=== PATIENT | female | born 1990 | race Two or more races ===

== ENCOUNTER 2016-12-05 08:41 | Emergency (ER) | payer BC, OTHER ==
[2016-12-05 08:56] VITALS: BMI 40.3
--- NOTE | 2016-12-05 09:27 | PDOC ---
History of Present Illness - General History Source: Patient Exam Limitations: No Limitations - History of Present Illness Initial Comments: 12/05/16 09:29 The patient is a 26-year-old woman, accompanied by friend, with a past medical history of anxiety who presents to the emergency department via walk-in for further evaluation of abdominal pain. Patient states that her pain started suddenly this morning while she was driving her friend to work. She states that initially, her pain was a stabbing sensation but has now turned into burning sensation. She attempted to move in order to alleviate her pain, but she states that movements have exacerbated it. She also reports one episode of vomiting. No flank pain, dysuria, diarrhea. No fever, chills. Allergies: No Known Allergies Past Surgical History: None reported. Social History: She denies tobacco, ETOH and recreational drug use. <Qian Beltran - Last Filed: 12/05/16 14:50> <Zaynab Farley - Last Filed: 12/05/16 21:49> - General Chief Complaint: Pain Stated Complaint: LT SIDE PAIN Time Seen by Provider: 12/05/16 09:17 Past History <Qian Beltran - Last Filed: 12/05/16 14:50> - Past Medical History Other medical history: NONE - Immunization History Immunization Up to Date: Yes - Psycho/Social/Smoking Cessation Hx Anxiety: Yes Suicidal Ideation: No Smoking History: Never smoked Hx Alcohol Use: No Drug/Substance Use Hx: No Substance Use Type: None <Zaynab Farley - Last Filed: 12/05/16 21:49> - Past Medical History Allergies/Adverse Reactions: Allergies Allergy/AdvReac Type Severity Reaction Status Date / Time No Known Allergies Allergy Verified 12/05/16 08:56 Home Medications: Ambulatory Orders Ibuprofen [Motrin -] 600 mg PO TID #21 tablet 12/05/16 Oxycodone HCl/Acetaminophen [Percocet 5-325 mg Tablet] 1 tab PO Q6H PRN #12 tablet MDD 4 tabs 12/05/16 Review of Systems - Review of Systems Able to Perform ROS?: Yes Comments:: 12/05/16 09:29 GENERAL/CONSTITUTIONAL: No fever or chills. No weakness. HEAD, EYES, EARS, NOSE AND THROAT: No change in vision. No ear pain or discharge. No sore throat. CARDIOVASCULAR: No chest pain or shortness of breath. RESPIRATORY: No cough, wheezing, or hemoptysis. GASTROINTESTINAL: Yes: Abdominal Pain. Nausea. Vomiting. No diarrhea or constipation. GENITOURINARY: No dysuria, frequency, or change in urination. MUSCULOSKELETAL: No joint or muscle swelling or pain. No neck or back pain. SKIN: No rash NEUROLOGIC: No headache, vertigo, loss of consciousness, or change in strength/ sensation. ENDOCRINE: No increased thirst. No abnormal weight change. HEMATOLOGIC/LYMPHATIC: No anemia, easy bleeding, or history of blood clots. ALLERGIC/IMMUNOLOGIC: No hives or skin allergy. <Qian Beltran - Last Filed: 12/05/16 14:50> *Physical Exam - Vital Signs Last Vital Signs Temp Pulse Resp BP Pulse Ox 97.8 F 82 20 141/78 99 12/05/16 08:53 12/05/16 08:53 12/05/16 08:53 12/05/16 08:53 12/05/16 08:53 - Physical Exam Comments: 12/05/16 09:29 GENERAL: Awake, alert, and fully oriented, in no acute distress HEAD: No signs of trauma EYES: PERRLA, EOMI, sclera anicteric, conjunctiva clear ENT: Auricles normal inspection, hearing grossly normal, nares patent, oropharynx clear without exudates. Moist mucosa NECK: Normal ROM, supple, no lymphadenopathy, JVD, or masses LUNGS: Breath sounds equal, clear to auscultation bilaterally. No wheezes, and no crackles HEART: Regular rate and rhythm, normal S1 and S2, no murmurs, rubs or gallops ABDOMEN: Soft, there is moderate tenderness to palpation with guarding to the left upper and lower quadrants. Normoactive bowel sounds. No rebound. No masses EXTREMITIES: Normal range of motion, no edema. No clubbing or cyanosis. No cords, erythema, or tenderness NEUROLOGICAL: Cranial nerves II through XII grossly intact. Normal speech <Qian Beltran - Last Filed: 12/05/16 14:50> - Vital Signs Last Vital Signs Temp Pulse Resp BP Pulse Ox 97.8 F 82 20 141/78 99 12/05/16 08:53 12/05/16 08:53 12/05/16 08:53 12/05/16 08:53 12/05/16 08:53 <Zaynab Farley - Last Filed: 12/05/16 21:49> ED Treatment Course - LABORATORY CBC & Chemistry Diagram: 12/05/16 09:53 12/05/16 09:53 - RADIOLOGY Radiograph Interpretation: 12/05/16 14:48 EXAM: CT/ABDOMEN PELVIS CT WITH CONTR CT IMPRESSION: Axial imaging completed with coronal and sagittal reformations after bolus injection 95 cc Omnipaque 350 with a power injector Normal images through the lung bases with no infiltrate, nodule or effusion with no pneumatosis and no signs of bowel obstruction with no hernia. Normal midline urinary bladder identified Retained fecal material throughout the colon identified with normal visualization of region of terminal ileum with normal region of appendix and no CT evidence of appendicitis or colitis with no CT evidence of diverticulitis Symmetric enhancement of both kidneys with no hydronephrosis or stones and no pyelonephritis. Normal visualization of liver, gallbladder and bile ducts including stomach, splenic flexure and spleen with normal visualization of the pancreas No aortic aneurysm or para-aortic adenopathy with tiny mesenteric lymph nodes subcentimeter short axis configuration root of mesentery which can be seen with mesenteric adenitis. No enlarged para- aortic or retroperitoneal lymph nodes are seen and there is no bowel wall thickening with no paracolic infiltration. There are no suspicious findings in the pelvis, the uterus enhances normally. The presence of a large cyst is observed in the region of the left ovary up to 2 cm. Recent rupture suspected No abnormalities in the region of right adnexa with normal visualization of the ovary with no fibroids and no significant free fluid in the floor the pelvis with normal rectum <Qian Beltran - Last Filed: 12/05/16 14:50> - LABORATORY CBC & Chemistry Diagram: 12/05/16 09:53 12/05/16 09:53 <Zaynab Farley - Last Filed: 12/05/16 21:49> Medical Decision Making - Medical Decision Making 12/05/16 10:59 Pt reassessed. She states the pain is coming back. Will give additional dose of morphine and cont to monitor. 12/05/16 13:44 Pt reassessed. Pain has returned. Abd exam remains stable. Will give dilaudid. Awaiting sono results. 12/05/16 14:56 Sono results discussed with patient. She states that the pain has improved. I will give a dose of toradol at this point, as it may be more effective for the pain from the ovarian cyst. 12/05/16 16:34 Patient states pain has resolved. Feeling much better. Stable for DC home. [employer] f /u as outpatient. <Zaynab Farley - Last Filed: 12/05/16 21:49> *DC/Admit/Observation/Transfer - Attestations Scribe Attestion: 12/05/16 09:30 Documentation prepared by Qian Beltran, acting as medical file clerk for Zaynab Farley MD. <Qian Beltran - Last Filed: 12/05/16 14:50> - Discharge Dispostion Admit: No <Zaynab Farley - Last Filed: 12/05/16 21:49> Diagnosis at time of Disposition: Ovarian cyst Qualifiers: Laterality: right Qualified Code(s): N83.201 - Unspecified ovarian cyst, right side - Discharge Dispostion Disposition: HOME Condition at time of disposition: Improved - Prescriptions Prescriptions: Ibuprofen [Motrin -] 600 mg PO TID #21 tablet Oxycodone HCl/Acetaminophen [Percocet 5-325 mg Tablet] 1 tab PO Q6H PRN #12 tablet MDD 4 tabs PRN Reason: Severe Pain - Patient Instructions Printed Discharge Instructions: DI for Ovarian Cyst - Post Discharge Activity Work/School Note: Back to Work
[2016-12-05] MEDS ORDERED: SODIUM CHLORIDE 1,000 ML IV STA (09:28)
[2016-12-05] MEDS ORDERED: ONDANSETRON 4 MG/2 ML VIAL IVPUSH ONE (09:28)
[2016-12-05] MEDS ORDERED: morphine CARPU-JECT 4 MG/1 ML DISP.SYRIN IVPUSH ONE ×2 (09:28→10:58)
[2016-12-05] MEDS ORDERED: morphine CARPU-JECT 4 MG/1 ML DISP.SYRIN ONE ×2 (09:29→10:59)
[2016-12-05] MEDS ORDERED: ONDANSETRON 4 MG/2 ML VIAL ONE (09:30)
[2016-12-05 10:03] LABS: BASOPHIL 0.7 % (0-2.0); EOSINOPHIL 1.1 % (0-4.5); MCH 28.2 pg (25.7-33.7); MCHC 33.1 g/dl (32.0-36.0); MEAN CELL VOLUME 85.4 fl (80-96); MEAN PLT VOLUME 8.6 fl (7.5-11.1); NEUTROPHILS 70.2 % (42.8-82.8); PLATELET COUNT 247 K/MM3 (134-434); RDW 13.7 % (11.6-15.6); WHITE BLOOD COUNT 6.3 K/mm3 (4.0-10.0)
[2016-12-05 10:07] LABS: URINE APPEARANCE CLEAR; URINE BILIRUBIN NEGATIVE (NEGATIVE); URINE COLOR LTYELLOW; URINE GLUCOSE (UA) NEGATIVE (NEGATIVE); URINE KETONE NEGATIVE (NEGATIVE); URINE LEUK ESTERASE NEGATIVE (NEGATIVE); URINE NITRITE NEGATIVE (NEGATIVE); URINE PROTEIN NEGATIVE (NEGATIVE); URINE UROBILINOGEN NEGATIVE E.U./dl (0.2-1.0)
[2016-12-05 10:08] LABS: URINE BLOOD 3+ (NEGATIVE)
[2016-12-05 10:29] LABS: ALK PHOS 82 U/L (45-117); ANION GAP 9 (8-16); BILIRUBIN,TOTAL 0.5 mg/dL (0.2-1.0); CALCIUM 9.5 mg/dL (8.5-10.1); CO2 27 mmol/L (21-32); CREATININE 0.7 mg/dL (0.55-1.02); GLUCOSE,RANDOM 95 mg/dL (74-106); SGOT/AST 19 U/L (15-37); SGPT/ALT 29 U/L (12-78); TOT PROT 7.6 g/dl (6.4-8.2)
[2016-12-05 11:41] LABS: URINE MUCUS RARE; URINE RBC 450 /hpf (0-3); URINE WBC 4 /hpf (3-5)
[2016-12-05 12:10] VITALS: TEMP 98.7
[2016-12-05] MEDS ORDERED: HYDROmorphone HCL CARPU-JECT 1 MG/1 ML DISP.SYRIN IVPUSH ONE (13:43)
[2016-12-05] MEDS ORDERED: HYDROmorphone HCL CARPU-JECT 1 MG/1 ML DISP.SYRIN ONE (13:54)
[2016-12-05] MEDS ORDERED: KETOROLAC TROMETHAMINE 30 MG/1 ML VIAL IVPUSH ONE (14:55)
[2016-12-05] MEDS ORDERED: KETOROLAC TROMETHAMINE 30 MG/1 ML VIAL ONE (15:09)
[2016-12-05 15:18] VITALS: BP 120/67; PULSE 68
== END 2016-12-05 16:35 | disposition home or self-care (01) ==
LOC: JER 08:41
PROC: 3E033NZ Introduction of Analgesics, Hypnotics, Sedatives into Peripheral Vein, Percutaneous Approach (ICD-10-PCS; principal; 2016-12-05)
PROC: 3E0333Z Introduction of Anti-inflammatory into Peripheral Vein, Percutaneous Approach (ICD-10-PCS; 2016-12-05)
PROC: 3E033GC Introduction of Other Therapeutic Substance into Peripheral Vein, Percutaneous Approach (ICD-10-PCS; 2016-12-05)
DX: N83.292 Other ovarian cyst, left side (principal)
CPT/HCPCS: 36415; 74177-TC; 80053; 81003; 81015; 83690; 84703; 85025; 99284-25

== ENCOUNTER 2017-01-04 16:12 | Emergency (ER) | payer BC ==
[2017-01-04 16:16] VITALS: BMI 41.9
--- NOTE | 2017-01-04 16:41 | PDOC ---
History of Present Illness - History of Present Illness Initial Comments: 01/04/17 18:07 Patient is a 26 year old female with significant medical hx of PCOS who is presenting to the ED with LLQ pain and urgency for three weeks. The patient was seen in the ED 12/05/16 for the same complaint and was diagnosed with a ruptured ovarian cyst. The patient was discharged on oxycodone, which she reportedly took for a few days after discharge, yesterday the pain started getting worse and she took a motrin with minimal improvement. Patient states that her pain has worsened the past two days. Today the patient had two episodes of vomiting and three episodes of diarrhea (nonbloody/nonmelanotic). The patient also endorses urinary urgency. She states that she feels a pressure in her lower abdomen and feels urgency to go to the bathroom. Denies fevers or chills, back pain. The patient states that she has had vaginal bleeding for the past two months straight and saw a new AIR BAG BUFFER a few months ago, who started her on control to control her menses. Patient reports that her menstrual cycle has not changed since starting control. NYLON MACHINE OPERATOR: Marilyn Penn MD <Deidra Bianchi - Last Filed: 01/04/17 18:07> <Sania Dexter - Last Filed: 01/04/17 20:43> <Marii Burnett - Last Filed: 01/04/17 20:57> <Ruddy Gaitan - Last Filed: 01/08/17 03:01> - General Chief Complaint: Pain Stated Complaint: ABD PAIN/VOMITING Time Seen by Provider: 01/04/17 16:24 Past History <Deidra Bianchi - Last Filed: 01/04/17 18:07> <Sania Dexter - Last Filed: 01/04/17 20:43> <Marii Burnett - Last Filed: 01/04/17 20:57> - Past Medical History Other medical history: pcos - Surgical History Abdominal Surgery: (hernia) - Immunization History Immunization Up to Date: Yes - Psycho/Social/Smoking Cessation Hx Anxiety: No Suicidal Ideation: No Smoking History: Never smoked Have you smoked in the past 12 months: No Information on smoking cessation initiated: No Hx Alcohol Use: No Drug/Substance Use Hx: No Substance Use Type: None <Kandy,Ruddy - Last Filed: 01/08/17 03:01> - Past Medical History Allergies/Adverse Reactions: Allergies Allergy/AdvReac Type Severity Reaction Status Date / Time No Known Allergies Allergy Verified 01/04/17 16:14 Home Medications: Ambulatory Orders Norethindrone-E.estradiol-Iron [Taytulla 1 mg-20 Mcg Capsule] 1 each PO DAILY Review of Systems - Review of Systems Comments:: 01/04/17 18:08 CONSTITUTIONAL: No reported: Fever, Chills, Diaphoresis, Generalized Weakness, Malaise, Loss of Appetite HEENT: No reported: Rhinorrhea, Nasal Congestion, Throat Pain, Throat Swelling, Difficulty Swallowing, Mouth Swelling, Ear Pain, Eye Pain, Visual Changes CARDIOVASCULAR: No reported: Chest Pain, Syncope, Palpitations, Irregular Heart Rate, Lightheadedness, Peripheral Edema RESPIRATORY: No reported: Cough, Shortness of Breath, SOB with Exertion, Orthopnea, Wheezing , Stridor, Hemoptysis GASTROINTESTINAL: Reported: LLQ pain, Nausea, Vomiting, Diarrhea No reported: Abdominal Distension, Constipation, Melena, Hematochezia GENITOURINARY: Reported: Vaginal Bleeding, Urgency No reported: Dysuria, Frequency, Hesitancy, Flank Pain, Genital Pain MUSCULOSKELETAL: No reported: Myalgia, Arthralgia, Joint Swelling, Back pain, Neck Pain SKIN: No reported: Rash, Itching, Pallor HEMEATOLOGIC/IMMUNOLOGIC: No reported: Easy Bleeding, Easy Bruising, Lymphadenopathy, Frequent infections ENDOCRINE: No reported: Unexplained Weight Gain, Unexplained Weight Loss, Heat Intolerance , Cold Intolerance NEUROLOGIC: No reported: Headache, Focal Weakness, Paresthesias, Vertigo, Lightheadedness, Unsteady Gait, Seizure, Mental Status Changes, Incontinence PSYCHIATRIC: No reported: Anxiety, Depression <Deidra Bianchi - Last Filed: 01/04/17 18:07> *Physical Exam - Vital Signs Last Vital Signs Temp Pulse Resp BP Pulse Ox 97.9 F 86 18 133/79 100 01/04/17 16:14 01/04/17 16:14 01/04/17 16:14 01/04/17 16:14 01/04/17 16:14 - Physical Exam Comments: 01/04/17 18:08 GENERAL: The patient is awake, alert, and fully oriented, Nontoxic - in no acute distress. HEAD: Normocephalic, atraumatic. EYES: extraocular movements intact, sclera anicteric, conjunctiva clear. ENT: Normal voice, Moist mucous membranes. NECK: Normal range of motion, supple LUNGS: Breath sounds equal, clear to auscultation bilaterally. No wheezes, no rhonchi, no rales. HEART: Regular rate and rhythm, without murmur, rub or gallop. ABDOMEN: Soft, mild left adnexal tenderness, normoactive bowel sounds. No guarding, no rebound.No CVA tenderness EXTREMITIES: Normal range of motion, no edema. No clubbing or cyanosis. No cords , erythema, or tenderness. NEUROLOGICAL: No facial assymetry, Normal speech, PSYCH: Normal mood, normal affect. SKIN: Warm, Dry, normal turgor. <Deidra Bianchi - Last Filed: 01/04/17 18:07> - Vital Signs Last Vital Signs Temp Pulse Resp BP Pulse Ox 97.9 F 86 18 133/79 100 01/04/17 16:14 01/04/17 16:14 01/04/17 16:14 01/04/17 16:14 01/04/17 16:14 <Sania Dexter - Last Filed: 01/04/17 20:43> - Vital Signs Last Vital Signs Temp Pulse Resp BP Pulse Ox 97.9 F 86 18 133/79 100 01/04/17 16:14 01/04/17 16:14 01/04/17 16:14 01/04/17 16:14 01/04/17 16:14 <Marii Burnett - Last Filed: 01/04/17 20:57> - Vital Signs Last Vital Signs Temp Pulse Resp BP Pulse Ox 97.9 F 86 18 133/79 100 01/04/17 16:14 01/04/17 16:14 01/04/17 16:14 01/04/17 16:14 01/04/17 16:14 <Ruddy Gaitan - Last Filed: 01/08/17 03:01> ED Treatment Course - LABORATORY CBC & Chemistry Diagram: 01/04/17 17:32 01/04/17 17:32 - ADDITIONAL ORDERS Additional order review: 01/04/17 17:32 RBC 4.46 MCV 85.9 MCHC 32.3 RDW 14.0 MPV 9.0 Neutrophils % 71.7 Lymphocytes % 20.0 Monocytes % 6.3 Eosinophils % 1.4 Basophils % 0.6 - Medications Given in the ED: ED Medications Discontinued Medications Generic Name Dose Route Start Last Admin Trade Name Dawsonq PRN Reason Stop Dose Admin Hydromorphone HCl 0.5 mg 01/04/17 16:55 01/04/17 17:29 Dilaudid Injection - IVPUSH 01/04/17 16:56 0.5 mg ONCE ONE Administration Ondansetron HCl 4 mg 01/04/17 16:56 01/04/17 17:29 Zofran Injection IVPB 01/04/17 16:57 4 mg ONCE ONE Administration <Deidra Bianchi - Last Filed: 01/04/17 18:07> - LABORATORY CBC & Chemistry Diagram: 01/04/17 17:32 01/04/17 17:32 - ADDITIONAL ORDERS Additional order review: Laboratory Results 01/04/17 01/04/17 01/04/17 17:32 17:32 17:32 Sodium 140 Potassium 4.6 Chloride 108 H Carbon Dioxide 24 Anion Gap 8 BUN 12 Creatinine 0.8 Creat Clearance w eGFR > 60 Random Glucose 99 Calcium 9.6 Total Bilirubin 0.2 D AST 24 D ALT 64 D Alkaline Phosphatase 69 Total Protein 7.6 Albumin 3.9 Urine Color Ltyellow Urine Appearance Slcloudy Urine pH 5.0 D Ur Specific Rice 1.032 Urine Protein 2+ H Urine Glucose (UA) Negative Urine Ketones Negative Urine Blood 3+ H Urine Nitrite Negative Urine Bilirubin Negative Urine Urobilinogen Negative Ur Leukocyte Esterase Negative Urine HCG, Qual Negative 01/04/17 17:32 RBC 4.46 MCV 85.9 MCHC 32.3 RDW 14.0 MPV 9.0 Neutrophils % 71.7 Lymphocytes % 20.0 Monocytes % 6.3 Eosinophils % 1.4 Basophils % 0.6 - Medications Given in the ED: ED Medications Discontinued Medications Generic Name Dose Route Start Last Admin Trade Name Dawsonq PRN Reason Stop Dose Admin Hydromorphone HCl 0.5 mg 01/04/17 16:55 01/04/17 17:29 Dilaudid Injection - IVPUSH 01/04/17 16:56 0.5 mg ONCE ONE Administration Hydromorphone HCl 1 mg 01/04/17 18:26 01/04/17 18:34 Dilaudid Injection - IVPUSH 01/04/17 18:27 1 mg ONCE ONE Administration Ondansetron HCl 4 mg 01/04/17 16:56 01/04/17 17:29 Zofran Injection IVPB 01/04/17 16:57 4 mg ONCE ONE Administration Ondansetron HCl 4 mg 01/04/17 18:36 01/04/17 18:39 Zofran Injection IVPB 01/04/17 18:37 4 mg ONCE ONE Administration <Serena Dexterie - Last Filed: 01/04/17 20:43> - LABORATORY CBC & Chemistry Diagram: 01/04/17 17:32 01/04/17 17:32 - ADDITIONAL ORDERS Additional order review: Laboratory Results 01/04/17 01/04/17 01/04/17 17:32 17:32 17:32 Sodium 140 Potassium 4.6 Chloride 108 H Carbon Dioxide 24 Anion Gap 8 BUN 12 Creatinine 0.8 Creat Clearance w eGFR > 60 Random Glucose 99 Calcium 9.6 Total Bilirubin 0.2 D AST 24 D ALT 64 D Alkaline Phosphatase 69 Total Protein 7.6 Albumin 3.9 Urine Color Ltyellow Urine Appearance Slcloudy Urine pH 5.0 D Ur Specific Rice 1.032 Urine Protein 2+ H Urine Glucose (UA) Negative Urine Ketones Negative Urine Blood 3+ H Urine Nitrite Negative Urine Bilirubin Negative Urine Urobilinogen Negative Ur Leukocyte Esterase Negative Urine HCG, Qual Negative 01/04/17 17:32 RBC 4.46 MCV 85.9 MCHC 32.3 RDW 14.0 MPV 9.0 Neutrophils % 71.7 Lymphocytes % 20.0 Monocytes % 6.3 Eosinophils % 1.4 Basophils % 0.6 - Medications Given in the ED: ED Medications Discontinued Medications Generic Name Dose Route Start Last Admin Trade Name Freq PRN Reason Stop Dose Admin Hydromorphone HCl 0.5 mg 01/04/17 16:55 01/04/17 17:29 Dilaudid Injection - IVPUSH 01/04/17 16:56 0.5 mg ONCE ONE Administration Hydromorphone HCl 1 mg 01/04/17 18:26 01/04/17 18:34 Dilaudid Injection - IVPUSH 01/04/17 18:27 1 mg ONCE ONE Administration Ondansetron HCl 4 mg 01/04/17 16:56 01/04/17 17:29 Zofran Injection IVPB 01/04/17 16:57 4 mg ONCE ONE Administration Ondansetron HCl 4 mg 01/04/17 18:36 01/04/17 18:39 Zofran Injection IVPB 01/04/17 18:37 4 mg ONCE ONE Administration <Marii Burnett - Last Filed: 01/04/17 20:57> - LABORATORY CBC & Chemistry Diagram: 01/04/17 17:32 01/04/17 17:32 <KandyRuddy - Last Filed: 01/08/17 03:01> Medical Decision Making - Medical Decision Making 01/04/17 20:43 Dr. Reyes was paged and notified via phone service. <Sania Dexter - Last Filed: 01/04/17 20:43> - Medical Decision Making 01/04/17 20:[address] of abd/pelvis, sono pelvis and labs and vitals normal. Pt will be discharged. Her UA shows only blood and protein. I will ask pt to follow with her PMD, as well as with her monitoring specialist Diagnosis: Abd pain, NOS. 01/04/17 20:39 Pt has had vaginal bleeding x 2 months, and her AIR BAG BUFFER starter her on Taytulla control. Pt will follow with [employer] [facility] BUFFER <Marii Burnett - Last Filed: 01/04/17 20:57> - Medical Decision Making 01/04/17 16:56 26y hx of PCOS on OCP presenting with complaing of L adnexal pain for several weeks, pt was here 4 weeks ago for evalution of the same pain, had a CT that was c/w recent ruptured ovarian cyst. On exam the pt appears well and has mild L adnexal tenderness. no systemoic complaints but pt did endorse nausea/ vomiting. will obtain US to r/o cyst, suspect possible ovarian cyst as pt was here exactly 1 month will give analgesia will ck ua to ru /uti will reassess A portion of this note was documented by scribe services under my direction. I have reviewed the details of the note, within reason, and agree with the documentation with the following case summary and management plan written by me 01/04/17 18:56 labs unremarkable US wnl pt sigend out to fu with dr. burnett for disposition and reassessment awaiting CT to r/o kidney stone as there is +hematuria <Ruddy Gaitan - Last Filed: 01/08/17 03:01> *DC/Admit/Observation/Transfer - Attestations Scribe Attestion: 01/04/17 18:08 Documentation prepared by Deidra Bianchi, acting as medical front desk specialist for Ruddy Gaitan MD. <Deidra Bianchi - Last Filed: 01/04/17 18:07> <Sania Dexter - Last Filed: 01/04/17 20:43> - Discharge Dispostion Admit: No <Marii Burnett - Last Filed: 01/04/17 20:57> <Ruddy Gaitan - Last Filed: 01/08/17 03:01> Diagnosis at time of Disposition: Abdominal pain - Discharge Dispostion Disposition: HOME Condition at time of disposition: Improved - Referrals Referrals: Mo Cook MD [Staff Physician] - - Patient Instructions Printed Discharge Instructions: DI for Abdominal Pain-Adult
[2017-01-04] MEDS ORDERED: HYDROmorphone HCL CARPU-JECT 2 MG/1 ML DISP.SYRIN IVPUSH ONE ×2 (16:55→18:26)
[2017-01-04] MEDS ORDERED: ONDANSETRON 4 MG/2 ML VIAL IVPB ONE ×2 (16:56→18:36)
[2017-01-04] MEDS ORDERED: HYDROmorphone HCL CARPU-JECT 1 MG/1 ML DISP.SYRIN ONE ×2 (17:18→18:27)
[2017-01-04] MEDS ORDERED: ONDANSETRON 4 MG/2 ML VIAL ONE ×2 (17:18→18:36)
[2017-01-04 17:45] LABS: BASOPHIL 0.6 % (0-2.0); EOSINOPHIL 1.4 % (0-4.5); MCH 27.7 pg (25.7-33.7); MCHC 32.3 g/dl (32.0-36.0); MEAN CELL VOLUME 85.9 fl (80-96); NEUTROPHILS 71.7 % (42.8-82.8); PLATELET COUNT 294 K/MM3 (134-434); WHITE BLOOD COUNT 6.5 K/mm3 (4.0-10.0)
[2017-01-04 18:14] LABS: URINE APPEARANCE SLCLOUDY; URINE BILIRUBIN NEGATIVE (NEGATIVE); URINE COLOR LTYELLOW; URINE GLUCOSE (UA) NEGATIVE (NEGATIVE); URINE KETONE NEGATIVE (NEGATIVE); URINE LEUK ESTERASE NEGATIVE (NEGATIVE); URINE NITRITE NEGATIVE (NEGATIVE); URINE UROBILINOGEN NEGATIVE E.U./dl (0.2-1.0)
[2017-01-04 18:19] LABS: URINE BLOOD 3+ (NEGATIVE); URINE PROTEIN 2+ (NEGATIVE)
[2017-01-04 18:45] LABS: ALBUMIN 3.9 g/dl (3.4-5.0); ALK PHOS 69 U/L (45-117); ANION GAP 8 (8-16); BILIRUBIN,TOTAL 0.2 mg/dL (0.2-1.0); CALCIUM 9.6 mg/dL (8.5-10.1); CO2 24 mmol/L (21-32); COCKROFT - GAULT 200.1325; CREATININE 0.8 mg/dL (0.55-1.02); GLUCOSE,RANDOM 99 mg/dL (74-106); SGOT/AST 24 U/L (15-37); SGPT/ALT 64 U/L (12-78); TOT PROT 7.6 g/dl (6.4-8.2)
[2017-01-04 21:10] VITALS: BP 117/80; PULSE 82; TEMP 98.7
[2017-01-04 21:30] LABS: URINE MUCUS RARE; URINE RBC 2219 /hpf (0-3)
== END 2017-01-04 21:09 | disposition home or self-care (01) ==
LOC: JER 16:12
PROC: 3E033NZ Introduction of Analgesics, Hypnotics, Sedatives into Peripheral Vein, Percutaneous Approach (ICD-10-PCS; principal; 2017-01-04)
PROC: 3E033GC Introduction of Other Therapeutic Substance into Peripheral Vein, Percutaneous Approach (ICD-10-PCS; 2017-01-04)
DX: R10.9 Unspecified abdominal pain (principal)
CPT/HCPCS: 36415; 74176-TC; 76830-TC; 80053; 81003; 81015; 84703; 85025; 99283-25

== ENCOUNTER 2017-10-21 15:53 | Emergency (ER) | payer BC ==
[2017-10-21 16:06] VITALS: BP 142/80; PULSE 117; TEMP 97.3; BMI 40.3
--- NOTE | 2017-10-21 17:35 | PDOC ---
History of Present Illness - General Chief Complaint: Chronic pain Stated Complaint: BACK PAIN, NUMBNESS Time Seen by Provider: 10/21/17 17:22 History Source: Patient - History of Present Illness Initial Comments: 10/21/17 17:39 Patient came for evaluation of mid thoracic back pain for a few weeks. States Saturday became so bad that she went to an urgent care and was evaluated. Was given medications that included cyclobenzaprine, Naprosyn, and oxycodone. Patient states took as prescribed through the weekend but had minimal relief of pain and states pain is persistent and radiating further up neck. Denies fever, denies any recent URI or any other illness. Denies rashes or skin changes. Denies any recent trauma, changes in exercise or heavy lifting, denies car accident or work related injury. Although patient works as an [employer] in the city. Area of back injury no sports related injuries. Has intermittent numbness and tingling to both hands and feet. Timing/Duration: unsure, getting worse Severity: moderate Associated Symptoms: reports: denies symptoms Past History - Travel Traveled outside of the country in the last 30 days: No Close contact w/someone who was outside of country & ill: No - Past Medical History Allergies/Adverse Reactions: Allergies Allergy/AdvReac Type Severity Reaction Status Date / Time No Known Allergies Allergy Verified 10/21/17 16:03 Home Medications: Ambulatory Orders Norethindrone-E.estradiol-Iron [Taytulla 1 mg-20 Mcg Capsule] 1 each PO DAILY Methocarbamol [Robaxin -] 1,500 mg PO Q8H PRN #20 tablet 10/21/17 predniSONE [Deltasone -] 20 mg PO BID #8 tablet 10/21/17 Anemia: No Asthma: No Cancer: No Cardiac Disorders: No CVA: No COPD: No DVT: No Dementia: No Diabetes: No Dialysis: No GI Disorders: No Disorders: No HTN: No Hypercholesterolemia: No Kidney Stones: No Liver Disease: No Psychiatric Problems: No Seizures: No Thyroid Disease: No Lung CA: No Other medical history: Patient denies medical hx - Surgical History Abdominal Surgery: (hernia) Appendectomy: No Cardiac Surgery: No Cholecystectomy: No Gastric Stapling: No GI Surgery: No Lung Surgery: No Neurologic Surgery: No - Reproductive History Polycystic Ovaries: Yes - Immunization History Immunization Up to Date: Yes - Suicide/Smoking/Psychosocial Hx Smoking History: Never smoked Have you smoked in the past 12 months: No Hx Alcohol Use: No Drug/Substance Use Hx: No Substance Use Type: None Review of Systems - Review of Systems Able to Perform ROS?: Yes Is the patient limited [place] proficient: Yes Constitutional: Yes: Symptoms Reported, See HPI, Malaise HEENTM: Yes: See HPI. No: Symptoms Reported Respiratory: Yes: See HPI. No: Cough Musculoskeletal: Yes: Symptoms Reported, See HPI, Back Pain, Muscle Pain Integumentary: Yes: See HPI. No: Symptoms Reported, Bruising Neurological: Yes: Symptoms reported, See HPI, Numbness, Paresthesia ( intermittent to hands and feet) All Other Systems: Reviewed and Negative *Physical Exam - Vital Signs Last Vital Signs Temp Pulse Resp BP Pulse Ox 97.3 F L 117 H 18 142/80 100 10/21/17 16:01 10/21/17 16:01 10/21/17 16:01 10/21/17 16:01 10/21/17 16:01 - Physical Exam General Appearance: Yes: Nourished, Appropriately Dressed, Apparent Distress, Mild Distress, Moderate Distress HEENT: positive: MONIQUE, Normal ENT Inspection, TMs Normal, Pharynx Normal Neck: positive: Supple. negative: Tender Respiratory/Chest: positive: Lungs Clear, Normal Breath Sounds Cardiovascular: positive: Regular Rate Gastrointestinal/Abdominal: positive: Soft. negative: Normal Bowel Sounds, Tender, Guarding, Rebound Musculoskeletal: positive: Normal Inspection (no rashes, lesions, swelling or deformities noted), Decreased Range of Motion (diminished at waist), Vertebral Tenderness (patient complains of tenderness extending from waist, L1 and up or to thoracic vertebrae through 5. Patient has tense musculature without palpable spasm but is very tender to light touch.). negative: CVA Tenderness, Muscle Spasm Extremity: positive: Normal Capillary Refill, Normal Inspection Integumentary: positive: Dry, Pale. negative: Normal Color Neurologic: positive: endband cutter hand II-XII NML intact, Fully Oriented, Alert, Normal Mood/ Affect, Normal Response, Motor Strength 5/5 *DC/Admit/Observation/Transfer Diagnosis at time of Disposition: Spasm of back muscles - Discharge Dispostion Disposition: HOME Condition at time of disposition: Stable Admit: No - Prescriptions Prescriptions: Methocarbamol [Robaxin -] 1,500 mg PO Q8H PRN #20 tablet PRN Reason: Muscle Spasms predniSONE [Deltasone -] 20 mg PO BID #8 tablet - Referrals Referrals: Kiara Plascencia MD [Primary Care Provider] - - Patient Instructions Printed Discharge Instructions: DI for Back Strain or Sprain Additional Instructions: Rest, no heavy lifting or exercise until pain is resolved Hot soaks to neck and low back as often as possible/hot showers or Jacuzzis No massage or therapy until spasm is gone Continue Naprosyn 1 500 mg tablet every 8 needed for pain and swelling Robaxin 1500 mg every 8 hours for the next 2 days then reduce dose to 750 mg every 8 hours as needed for spasm Prednisone 40 mg daily for the next 4 days Call and make appointment with Dr. Baltazar's office for further evaluation within the next 2 days If not significant improvement within 24 hours with medication and rest regime, followup with private physician for change in medications and /or therapy. - Post Discharge Activity Forms/Work/School Notes: Back to Work
[2017-10-21] MEDS ORDERED: predniSONE 20 MG TABLET (UD) PO ONE (17:37)
[2017-10-21] MEDS ORDERED: KETOROLAC TROMETHAMINE 60 MG/2 ML VIAL IM ONE (17:37)
[2017-10-21] MEDS ORDERED: KETOROLAC TROMETHAMINE 60 MG/2 ML VIAL ONE (18:10)
[2017-10-21] MEDS ORDERED: predniSONE 20 MG TABLET (UD) ONE (18:11)
== END 2017-10-21 19:31 | disposition home or self-care (01) ==
LOC: JERFT 15:53
PROC: 3E0233Z Introduction of Anti-inflammatory into Muscle, Percutaneous Approach (ICD-10-PCS; principal; 2017-10-21)
DX: M62.830 Muscle spasm of back (principal); R20.2 Paresthesia of skin
CPT/HCPCS: 72070-TC-FY; 72100-TC-FY; 84703; 99281-25